=== PATIENT | female | born 1970 | race Caucasian/White ===

== ENCOUNTER → 2016-10-01 | Outpatient (CLI) | payer OTHER ==
--- NOTE | 2016-10-01 12:02 | RADIOLOGY REPORT (SQ) ---
EXAM DESCRIPTION: CHEST PA/LATERAL COMPLETED DATE/TIME: 10/01/2016 11:44 am REASON FOR STUDY: PRE OP COMPARISON: 06/19/2015 EXAM PARAMETERS: NUMBER OF VIEWS: two views TECHNIQUE: Digital Frontal and Lateral radiographic views of the chest acquired. RADIATION DOSE: NA LIMITATIONS: none FINDINGS: LUNGS AND PLEURA: No opacities, masses or pneumothorax. No pleural effusion. MEDIASTINUM AND HILAR STRUCTURES: No masses or contour abnormalities. HEART AND VASCULAR STRUCTURES: Heart normal size. No evidence for failure. BONES: No acute findings. HARDWARE: None in the chest. OTHER: No other significant finding. IMPRESSION: NO SIGNIFICANT RADIOGRAPHIC FINDING IN THE CHEST. TECHNICAL DOCUMENTATION: JOB ID: [id number] [employer]- All Rights Reserved
[2016-10-01 12:04] LABS: HEMATOCRIT 37.6 % (36.0-47.0); HEMOGLOBIN 12.4 g/dL (12.0-15.5); HGB HCT DIFFERENCE -0.4; MEAN CORPUSCULAR HEMOGLOBIN 26.2 pg (27.0-33.4); MEAN CORPUSCULAR HGB CONC 32.9 g/dL (32.0-36.0); MEAN CORPUSCULAR VOLUME 80 fl (80-97); RED BLOOD COUNT 4.72 10^6/uL (3.72-5.28); RED CELL DISTRIBUTION WIDTH 16.5 % (11.5-14.0); WHITE BLOOD COUNT 6.6 10^3/uL (4.0-10.5)
[2016-10-01 12:37] LABS: ALANINE AMINOTRANSFERASE 25 U/L (9-52); ALBUMIN 3.9 g/dL (3.5-5.0); ALKALINE PHOSPHATASE 76 U/L (38-126); ANION GAP 9 (5-19); ASPARTATE AMINO TRANSFERASE 19 U/L (14-36); BILIRUBIN,DIRECT 0.3 mg/dL (0.0-0.4); BLOOD UREA NITROGEN 13 mg/dL (7-20); CALCIUM 8.9 mg/dL (8.4-10.2); CARBON DIOXIDE 25 mmol/L (22-30); CHLORIDE 105 mmol/L (98-107); CREATININE RESULT 0.66 mg/dL (0.52-1.25); GLUCOSE 83 mg/dL (75-110); POTASSIUM 4.5 mmol/L (3.6-5.0); TOTAL PROTEIN 6.9 g/dL (6.3-8.2)
[2016-10-01 13:10] LABS: FERRITIN 9.72 ng/mL (6.2-137.0)
--- NOTE | 2016-10-01 17:26 | EKG REPORT ---
SEVERITY:- NORMAL ECG - SINUS RHYTHM : Confirmed by: Delmy Sims MD 01-Oct-2016 17:26:17
[2016-10-02 08:18] LABS: VITAMIN D 25-HYDROXY 28.9 ng/mL (30.0-100.0)
== END ==
LOC: OD 10:39
PROVIDERS: ATTEND Student in an Organized Health Care Education/Training Program
DX: Z71.89 Other specified counseling (principal)
CPT/HCPCS: 36415; 71020; 80053; 82306; 82607; 82728; 82746; 83036; 83540; 83550; 84466; 84590; 85027; 93005; 93010

== ENCOUNTER → 2016-10-23 | Outpatient (CLI) | payer OTHER ==
[2016-10-23 11:25] LABS: CHOLESTEROL 140.66 mg/dL (0-200); Direct HDL 57 mg/dL (>40); TRIGLYCERIDES 71 mg/dL (<150)
[2016-10-23 11:35] LABS: DIRECT LDL 68 mg/dL (<100)
== END ==
LOC: OD 09:55
PROVIDERS: ATTEND Student in an Organized Health Care Education/Training Program
DX: Z71.89 Other specified counseling (principal)
CPT/HCPCS: 36415; 80061

== ENCOUNTER → 2017-05-06 | Outpatient (CLI) | payer BC ==
--- NOTE | 2017-05-06 09:40 | EKG REPORT ---
SEVERITY:- NORMAL ECG - SINUS RHYTHM : Confirmed by: Leo Feng MD 06-May-2017 09:39:36
[2017-05-06 09:41] LABS: HEMATOCRIT 41.6 % (36.0-47.0); HEMOGLOBIN 13.8 g/dL (12.0-15.5); MEAN CORPUSCULAR HEMOGLOBIN 27.1 pg (27.0-33.4); MEAN CORPUSCULAR HGB CONC 33.1 g/dL (32.0-36.0); MEAN CORPUSCULAR VOLUME 82 fl (80-97); PLATELET COUNT 310 10^3/uL (150-450); RED BLOOD COUNT 5.07 10^6/uL (3.72-5.28); RED CELL DISTRIBUTION WIDTH 15.1 % (11.5-14.0); WHITE BLOOD COUNT 5.4 10^3/uL (4.0-10.5)
[2017-05-06 09:57] LABS: ALANINE AMINOTRANSFERASE 24 U/L (9-52); ALBUMIN 4.2 g/dL (3.5-5.0); ALKALINE PHOSPHATASE 62 U/L (38-126); ANION GAP 8 (5-19); ASPARTATE AMINO TRANSFERASE 19 U/L (14-36); BILIRUBIN,DIRECT 0.4 mg/dL (0.0-0.4); BILIRUBIN,TOTAL 0.9 mg/dL (0.2-1.3); BLOOD UREA NITROGEN 10 mg/dL (7-20); CALCIUM 9.4 mg/dL (8.4-10.2); CARBON DIOXIDE 28 mmol/L (22-30); CHLORIDE 102 mmol/L (98-107); GLUCOSE 83 mg/dL (75-110); IRON(TIBC) 96.4 ug/dL (37-170); POTASSIUM 4.3 mmol/L (3.6-5.0)
[2017-05-06 10:14] LABS: FREE T4 (FREE THYROXINE) 1.3 ng/dL (0.78-2.19)
[2017-05-06 10:28] LABS: THYROID STIMULATING HORMONE 1.52 uIU/mL (0.47-4.68)
[2017-05-06 11:02] LABS: FOLATE 3.62 ng/mL (>2.76)
--- NOTE | 2017-05-06 13:32 | RADIOLOGY REPORT (SQ) ---
EXAM DESCRIPTION: CHEST PA/LATERAL COMPLETED DATE/TIME: 05/06/2017 9:09 am REASON FOR STUDY: PRE OP COMPARISON: 10/01/2016 EXAM PARAMETERS: NUMBER OF VIEWS: two views TECHNIQUE: Digital Frontal and Lateral radiographic views of the chest acquired. RADIATION DOSE: NA LIMITATIONS: none FINDINGS: LUNGS AND PLEURA: No opacities, masses or pneumothorax. No pleural effusion. MEDIASTINUM AND HILAR STRUCTURES: No masses or contour abnormalities. HEART AND VASCULAR STRUCTURES: Heart normal size. No evidence for failure. BONES: No acute findings. HARDWARE: None in the chest. OTHER: No other significant finding. IMPRESSION: NO SIGNIFICANT RADIOGRAPHIC FINDING IN THE CHEST. TECHNICAL DOCUMENTATION: JOB ID: [id number] [employer]- All Rights Reserved Reading location - IP/workstation name: [email or web address]
[2017-05-08 10:35] LABS: TRIGLYCERIDES 39 mg/dL (<150)
[2017-05-08 10:46] LABS: DIRECT LDL 64 mg/dL (<100)
== END ==
LOC: OD 07:56
PROVIDERS: ATTEND Student in an Organized Health Care Education/Training Program
DX: Z01.810 Encounter for preprocedural cardiovascular examination (principal); Z01.812 Encounter for preprocedural laboratory examination; Z01.818 Encounter for other preprocedural examination
CPT/HCPCS: 36415; 71046; 80053; 80061; 80323; 82306; 82607; 82728; 82746; 83036; 83540; 83550; 84439; 84443; 84466; 84590; 85027; 93005; 93010; G0480

== ENCOUNTER → 2017-06-08 | Outpatient (CLI) | payer BC | LOC: OD 10:53 | PROVIDERS: ATTEND Student in an Organized Health Care Education/Training Program | DX: Z01.818 Encounter for other preprocedural examination (principal); Z01.812 Encounter for preprocedural laboratory examination | CPT/HCPCS: 36415; 83970 ==

== ENCOUNTER → 2019-04-19 | Day surgery (SDC) | payer BC ==
[~2019-04-19] MED LIST: LIDOCAINE 1%/EPINEPHRINE INJ 20 ML VIAL ONE
--- NOTE | 2019-04-19 11:45 | Discharge Summary ---
Discharge Summary (SDC) - Discharge Final Diagnosis: Microcalcifications central right breast Date of Surgery: 04/19/19 Discharge Date: 04/19/19 Condition: Good Treatment or Instructions: Supportive bra; shower in 24 hours; resume aspirin on April 20; Follow-up with Dr. [facility] in 1 to 2 weeks; take Tylenol or Motrin PRN pain Referrals: LILI GARCIA MD [Primary Care Provider] - Discharge Diet: As Tolerated Discharge Activity: Activity As Tolerated Home Care Assistance: None Needed Report the Following to Your Physician Immediately: Shortness of Breath, Increase in Pain, Fever over 101 Degrees
--- NOTE | 2019-04-19 11:51 | Operative Report ---
Operative Report DATE OF SURGERY: 04/19/19 PREOPERATIVE DIAGNOSIS: Microcalcifications right breast POSTOPERATIVE DIAGNOSIS: Same OPERATION: 1. Stereotactically directed incision mammotomy core biopsies right breast. 2. Interpretation of intraoperative mammography and the specimen radiograph. 3. Closure of mammotomy site SURGEON: JUN RIVERO ANESTHESIA: Local TISSUE REMOVED OR ALTERED: Multiple cores right breast COMPLICATIONS: None ESTIMATED BLOOD LOSS: 10 cc INTRAOPERATIVE FINDINGS: See below PROCEDURE: The patient was taken the waiting area to the radiology suite, placed on the stereotactic table, and the right breast placed into compression. The target microcalcifications in the central aspect of the right breast were localized. Stereotactic views were obtained. A surgical timeout was conducted. The surface of the right breast was prepped with Betadine. Skin was anesthetized 1% plain lidocaine. A small atif was made the skin with a number blade, hemostat used to open the skin incision, and the mammotome advanced to the appropriate depth. Pre-and post fire films showed good alignment between the mammotome and the microcalcifications. We completed the core biopsy in a circumferential fashion obtaining approximately 10 cores. Cores were then placed on a specimen container, and imaged with the specimen radiograph machine. This demonstrated retention of the target microcalcifications in the removed course. A clip marker was placed into the biopsy cavity, and introducer removed from the right breast. Patient had some venous bleeding required compression. Post biopsy image right breast showed retention of clip in the biopsy cavity. The patient was taken out of compression, laid supine, and additional compression applied. Patient continued to ooze from the mammotomy site 4-0 Prolene suture was placed to close the skin incision. The bleeding had abated. A strong compression dressing was applied. Patient tolerated procedure well. Discharge instructions 1. Leave compression dressing on for 48 hours 2. May resume aspirin in 24 hours. 3. We will defer post biopsy completion mammogram until next week because of the compression dressing required today. 4. We will call patient with results of pathology report 5. Patient will follow-up with [place] [facility] in 2 weeks
--- NOTE | 2019-05-02 12:23 | RADIOLOGY REPORT (SQ) ---
EXAM DESCRIPTION: STEREO BREAST BX COMPLETED DATE/TIME: 04/24/2019 4:56 pm REASON FOR STUDY: MAMMOGRAPHIC MICROCALCIFICATION FOUND ON DX IMAGING OF BRST R92.0 MAMMOGRAPHIC OH CROCALCIFICATION FOUND ON DX IMAGING OF COMPARISON: None. LIMITATIONS: None. PROCEDURE: Vacuum-assisted stereotactic-guided biopsy of the lesion in the right breast targeted and performed by Dr. Rascon, the operating surgeon. Procedure and post-procedure imaging interpreted by a radiologist. Using stereotactic guidance, a vacuum-assisted core biopsy of the targeted lesion was performed. A B arrel clip was deployed at the biopsy site. Post procedure image reveals the clip at the biopsy site . TECHNIQUE: Images from the stereotactic unit acquired during the procedure. Specimen radiography performed. Yes. Post- procedure image acquired post-clip placement. Yes. Post procedure 2 view mammograms performed in the mammography suite for clip placement. No. FINDINGS: SPECIMEN RADIOGRAPH:Calcifications identified.. POST PROCEDURE MAMMOGRAMS FOR MARKER PLACEMENT: No. POST PROCEDURE MAMMOGRAM: Not obtained. PATHOLOGY: Fibrocystic changes with benign intraductal microcalcifications. Columnar cell changes pr esent. No carcinoma in situ or invasive carcinoma is identified. CONCORDANT: Yes. The operating surgeon was notified of the findings. IMPRESSION: SUCCESSFUL STEREOTACTIC-GUIDED BIOPSY OF LESION IN THE RIGHT BREAST. BIOPSY RESULTS ARE CONCORDANT WITH IMAGING FINDINGS. FOLLOW-UP: PER SURGEON TECHNICAL DOCUMENTATION: JOB ID: [id number] [employer]- All Rights Reserved Reading location - IP/workstation name: [email or web address]
== END ==
LOC: RAD 09:53
PROVIDERS: ATTEND Surgery
DX: R92.0 Mammographic microcalcification found on diagnostic imaging of breast (principal); N60.11 Diffuse cystic mastopathy of right breast; I83.91 Asymptomatic varicose veins of right lower extremity; Z86.72 Personal history of thrombophlebitis; E03.9 Hypothyroidism, unspecified; Z87.891 Personal history of nicotine dependence; F41.9 Anxiety disorder, unspecified; Z86.718 Personal history of other venous thrombosis and embolism; D64.9 Anemia, unspecified; K21.9 Gastro-esophageal reflux disease without esophagitis; Z79.899 Other long term (current) drug therapy; Z79.82 Long term (current) use of aspirin
CPT/HCPCS: 88305 ×2; 88342; 19081; J3490